=== PATIENT | female | born 1975 | race Two or more races ===

== ENCOUNTER 2017-05-18 23:23 | Emergency (ER) | payer BC, OTHER ==
[~2017-05-18] VITALS: Ht 162.6 cm; Wt 68.0 kg
[~2017-05-18 23:23] MED LIST: ALPRAZOLAM0.25 MG ORAL; AMITRIPTYLINE25 MG ORAL; ATIVAN1 MG ORAL; CARBAMAZEPINE200 MG ORAL; CEPHALEXIN500 MG ORAL; CIPROFLOXACIN250 MG PO; CIPROFLOXACIN500 M2 ORAL; FIORICET1 EA ORAL; GENTAMICIN SULF15 G2 TOPIC; IBUPROFEN600 MG ORAL; IBUPROFEN600 MG PO; IBUPROFEN800 MG ORAL; KEPPRA500 MG ORAL; NORCO 5-325 TA1 EACH ORAL; NORCO 5-325 TA1 EACH PO; PHENOBARBI20 MG/5 ML NG; PHENOBARBITAL30 MG ORAL; TEGRETOL200 MG PO; TOPIRAMATE100 MG ORAL
[2017-05-19 01:04] VITALS: BP 95/54
[2017-05-19 01:12] LABS: BASOPHILS % (AUTO) 0.7 % (0.0-2.0); EOSINOPHILS % (AUTO) 0.1 % (0.0-3.0); LYMPHOCYTES % (AUTO) 39.2 % (20.0-45.0); MEAN CORPUSCULAR HGB CONC 31.3 G/DL (32.0-36.0); MEAN CORPUSCULAR VOLUME 86 FL (80-99); MONOCYTES % (AUTO) 6.9 % (1.0-10.0); NEUTROPHILS % (AUTO) 53.1 % (45.0-75.0); PLATELET COUNT 225 K/UL (150-450); RED BLOOD COUNT 4.57 M/UL (4.20-5.40); RED CELL DISTRIBUTION WIDTH 14.2 % (11.6-14.8); WHITE BLOOD COUNT 7.6 K/UL (4.8-10.8)
[2017-05-19 01:43] LABS: ALANINE AMINOTRANSFERASE 12 U/L (3-33); ALBUMIN/GLOBULIN RATIO 1.2 (1.0-2.7); ANION GAP 14 (5-15); ASPARTATE AMINO TRANSFERASE 14 U/L (5-40); CARBON DIOXIDE 20 mEQ/L (20-30); CHLORIDE 107 mEQ/L (98-107); CREATININE 0.8 mg/dL (0.5-0.9); GLOMERULAR FILTRATION RATE > 60 mL/min (>60); HEMOLYSIS 3; LIPASE 31 U/L (< 60); POTASSIUM 3.1 mEQ/L (3.4-4.9); SODIUM 141 mEQ/L (135-145); TOTAL PROTEIN 7.7 g/dL (6.6-8.7)
[2017-05-19 01:46] LABS: TROPONIN I < 0.30 ng/mL (<=0.30)
[2017-05-19 01:51] VITALS: BP 93/56
[2017-05-19 02:15] VITALS: BP 88/70
[2017-05-19 03:19] VITALS: BP 93/65
[2017-05-19 03:30] VITALS: BP 113/82
--- NOTE | 2017-05-24 05:33 | Emergency Room Report ---
History of Present Illness General Chief Complaint: General Complaint Source: Patient Present Illness HPI Patient 41-year-old female who presented after increased generalized weakness. Patient prior history of seizure disorder. Patient had reportedly compliant with his medications. Patient stated that she had been feeling increasingly tired. Patient denied any fevers. She reported having a seizure several days ago. She had not been vomiting or having any stiff neck. She denied any pain at this time. Allergies: Coded Allergies: No Known Allergies (Verified , 12/30/08) Patient History Past Medical History: see triage record Last Menstrual Period: Last month Now: No Reviewed Nursing Documentation: PMH: Agreed, PSxH: Agreed Nursing Documentation-PMH Past Medical History: No History, Except For Hx Cardiac Problems: Yes Hx Cancer: No Hx Gastrointestinal Problems: No Hx Neurological Problems: Yes Hx Seizures: Yes Review of Systems All Other Systems: negative except mentioned in HPI Physical Exam Vital Signs Date Time Temp Pulse Resp B/P Pulse Ox O2 Delivery O2 Flow Rate FiO2 05/18/17 23:43 97.9 82 16 106/70 100 Room Air Sp02 EP Interpretation: reviewed, normal General Appearance: normal inspection, well appearing, no apparent distress, alert, GCS 15 Head: atraumatic ENT: normal ENT inspection, hearing grossly normal, normal voice Neck: normal inspection, full range of motion, supple, no bony tend Respiratory: normal inspection, lungs clear, normal breath sounds, no respiratory distress, no retraction, no wheezing Cardiovascular #1: regular rate, rhythm, no edema Gastrointestinal: normal inspection, normal bowel sounds, non tender, soft, no guarding, no hernia Genitourinary: no CVA tenderness Musculoskeletal: normal inspection, back normal, normal range of motion Neurologic: normal inspection, alert, oriented x3, responsive, rn urgent care III-XII nml as tested, speech normal Psychiatric: normal inspection, judgement/insight normal, mood/affect normal Skin: normal inspection, normal color, no rash Medical Decision Making Diagnostic Impression: Primary Impression: Arm contusion Additional Impression: Generalized weakness ER Course Patient presented for generalized weakness. Differential diagnosis included was not limited to anemia, medication overdose, urinary tract infection, electrolyte abnormality, hypothyroidism, myocardial infarction, myasthenia gravis, dehydration, among others. Because of complexity of patient's case laboratory testing and imaging studies were ordered. Laboratory studies are unremarkable. Patient was given IV fluids. She stated that she felt somewhat better.The patient is advised to follow up with primary care doctor in 1-2 days. Patient is advised to return if any worsening condition or if any changes in status that are concerning. Labs Test 05/19/17 00:42 White Blood Count 7.6 K/UL (4.8-10.8) Red Blood Count 4.57 M/UL (4.20-5.40) Hemoglobin 12.3 G/DL (12.0-16.0) Hematocrit 39.4 % (37.0-47.0) Mean Corpuscular Volume 86 FL (80-99) Mean Corpuscular Hemoglobin 27.0 PG (27.0-31.0) Mean Corpuscular Hemoglobin Concent 31.3 G/DL (32.0-36.0) Red Cell Distribution Width 14.2 % (11.6-14.8) Platelet Count 225 K/UL (150-450) Mean Platelet Volume 8.0 FL (6.5-10.1) Neutrophils (%) (Auto) 53.1 % (45.0-75.0) Lymphocytes (%) (Auto) 39.2 % (20.0-45.0) Monocytes (%) (Auto) 6.9 % (1.0-10.0) Eosinophils (%) (Auto) 0.1 % (0.0-3.0) Basophils (%) (Auto) 0.7 % (0.0-2.0) Sodium Level 141 mEQ/L (135-145) Potassium Level 3.1 mEQ/L (3.4-4.9) Chloride Level 107 mEQ/L (98-107) Carbon Dioxide Level 20 mEQ/L (20-30) Anion Gap 14 (5-15) Blood Urea Nitrogen 7 mg/dL (7-23) Creatinine 0.8 mg/dL (0.5-0.9) Estimat Glomerular Filtration Rate > 60 mL/min (>60) Glucose Level 97 mg/dL (74-106) Calcium Level 9.0 mg/dL (8.6-10.2) Total Bilirubin < 0.2 mg/dL (0.0-1.2) Aspartate Amino Transf (AST/SGOT) 14 U/L (5-40) Alanine Aminotransferase (ALT/SGPT) 12 U/L (3-33) Alkaline Phosphatase 145 U/L (35-104) Troponin I < 0.30 ng/mL (<=0.30) Pro-B-Type Natriuretic Peptide 119 pg/mL (0-125) Total Protein 7.7 g/dL (6.6-8.7) Albumin 4.3 g/dL (3.5-5.2) Globulin 3.4 g/dL Albumin/Globulin Ratio 1.2 (1.0-2.7) Lipase 31 U/L (< 60) Last Vital Signs Date Time Temp Pulse Resp B/P Pulse Ox O2 Delivery O2 Flow Rate FiO2 05/19/17 03:30 70 16 113/82 100 Room Air 05/18/17 23:43 97.9 Status: improved Disposition: HOME, SELF-CARE Condition: Stable Referrals: NON PHYSICIAN (PCP) Patient Instructions: Contusion, Seizure, Adult Mark Hewitt May 24, 2017 05:33
== END 2017-05-19 03:30 | disposition home or self-care (01) ==
LOC: EMR 23:59
DX: S40.029A Contusion of unspecified upper arm, initial encounter (principal); R53.1 Weakness; G40.909 Epilepsy, unspecified, not intractable, without status epilepticus; X58.XXXA Exposure to other specified factors, initial encounter; Y93.9 Activity, unspecified; Y92.9 Unspecified place or not applicable
CPT/HCPCS: 36415; 80053; 83690; 83880; 84484; 85025; 96374

== ENCOUNTER 2018-03-08 21:07 | Emergency (ER) | payer BC, OTHER ==
[~2018-03-08] VITALS: Ht 162.6 cm; Wt 77.1 kg
[2018-03-08] MEDS ORDERED: PSEUDOEPHEDRINE60 MG PO (22:20)
[2018-03-08] MEDS ORDERED: AZITHROMYCIN250 MG ORAL (22:20)
[2018-03-08] MEDS ORDERED: IBUPROFEN600 MG ORAL (22:20)
--- NOTE | 2018-03-08 22:20 | Emergency Room Report ---
History of Present Illness General Chief Complaint: Upper Respiratory Illness Source: Patient Present Illness HPI Is a 41-year-old female with a history of seizure. She presents with chief complaint of ear pain and sore throat for the last 2 weeks. Also with sinus problem. No nausea no vomiting. No cough or congestion. Denies any other complaint. Pain is 10 out of 10. Worse with swallowing. Allergies: Coded Allergies: No Known Allergies (Verified , 12/30/08) Patient History Past Medical History: see triage record, old chart reviewed, seizures Past Surgical History: other Pertinent Family History: none Social History: Denies: smoking Last Menstrual Period: February Now: No Immunizations: other Reviewed Nursing Documentation: PMH: Agreed; PSxH: Agreed Nursing Documentation-PMH Hx Cardiac Problems: Yes Hx Cancer: No Hx Gastrointestinal Problems: No Hx Neurological Problems: Yes Hx Seizures: Yes Review of Systems Constitutional: Reports: fever Eye: Denies: eye pain, blurred vision ENT: Reports: ear pain, nose congestion; Denies: throat swelling Respiratory: Denies: cough, shortness of breath Cardiovascular: Denies: chest pain, palpitations Gastrointestinal: Denies: abdominal pain, diarrhea, nausea, vomiting Musculoskeletal: Denies: back pain, joint pain Skin: Denies: rash Neurological: Denies: headache, numbness Endocrine: Denies: increased thirst, increased urine Hematologic/Lymphatic: Denies: easy bruising All Other Systems: negative except mentioned in HPI Physical Exam Vital Signs Date Time Temp Pulse Resp B/P (MAP) Pulse Ox O2 Delivery O2 Flow Rate FiO2 03/08/18 21:19 97.5 79 18 95/52 99 Room Air 97.5 vitals normal Sp02 EP Interpretation: reviewed, normal General Appearance: well appearing, no apparent distress, alert Head: normocephalic, atraumatic Eyes: bilateral eye PERRL, bilateral eye EOMI ENT: hearing grossly normal, pharyngeal erythema, other - bilateral TM with effusion Neck: full range of motion, supple, no meningismus Respiratory: chest non-tender, lungs clear, normal breath sounds Cardiovascular #1: regular rate, rhythm, no murmur Gastrointestinal: normal bowel sounds, non tender, no mass, no organomegaly, no bruit, non-distended Musculoskeletal: back normal, gait/station normal, normal range of motion Psychiatric: mood/affect normal Skin: warm/dry Medical Decision Making Diagnostic Impression: Primary Impression: Upper respiratory infection Qualified Codes: J06.9 - Acute upper respiratory infection, unspecified Additional Impressions: Acute otitis media with effusion of both ears Pharyngitis with viral syndrome ER Course Patient with a viral illness, located by otitis media. No evidence of any sepsis pneumonia or meningitis or other serious bacterial infection. We'll discharge home. Last Vital Signs Date Time Temp Pulse Resp B/P (MAP) Pulse Ox O2 Delivery O2 Flow Rate FiO2 03/08/18 21:27 79 18 Room Air 03/08/18 21:19 97.5 95/52 99 97.5 Status: unchanged Disposition: HOME, SELF-CARE Condition: Stable Scripts Pseudoephedrine Hcl* (SUDAFED*) 60 Mg Tablet 60 MG PO Q6H, #30 TAB Prov: LISA DONAHUE M.D. 03/08/18 Azithromycin* (ZITHROMAX*) 250 Mg Tablet 250 MG ORAL DAILY, #6 TAB 0 Refills Take two tablets by mouth today, then take one tablet by mouth daily for four days Prov: LISA DONAHUE M.D. 03/08/18 Ibuprofen* (MOTRIN*) 600 Mg Tablet 600 MG ORAL Q8H PRN for For Pain, #30 TAB 0 Refills Prov: LISA DONAHUE M.D. 03/08/18 Referrals: [facility],REFERRING (PCP) Additional Instructions: Follow-up with your doctor in 7 days. Increase fluids. Salt water gargle. Return if worse. LISA DONAHUE M.D. Mar 08, 2018 22:20
[2018-03-08 22:28] VITALS: BP 110/68
[2018-03-08 22:31] VITALS: BP 110/68
== END 2018-03-08 22:31 | disposition home or self-care (01) ==
LOC: EMR 21:40
DX: J06.9 Acute upper respiratory infection, unspecified (principal); H65.193 Other acute nonsuppurative otitis media, bilateral; J02.8 Acute pharyngitis due to other specified organisms; B97.89 Other viral agents as the cause of diseases classified elsewhere
CPT/HCPCS: 99284

== ENCOUNTER 2019-02-17 17:55 | Emergency (ER) | payer OTHER ==
[~2019-02-17] VITALS: Ht 160 cm; Wt 65.8 kg
[~2019-02-17 17:55] MED LIST changes: +AZITHROMYCIN250 MG ORAL; +PSEUDOEPHEDRINE60 MG PO
--- NOTE | 2019-02-17 18:37 | Emergency Room Report ---
History of Present Illness General Chief Complaint: Behavioral Complaint Source: EMS Present Illness HPI 43 YO Female presents to the ED c/o recent seizure. pt. states she takes Tegretol. she has 3/10 in severity pain in the right knee which she describes as an ache. pt. states under stress she experiences breakthrough seizures. Denies N/V, or midline neck or back pain. Declines medical work-up. is requesting SSI/Disability evaluation for sz hx. Allergies: Coded Allergies: No Known Allergies (Verified , 12/30/08) Patient History Past Medical History: see triage record, seizures Past Surgical History: none Pertinent Family History: none Now: No Reviewed Nursing Documentation: PMH: Agreed; PSxH: Agreed Nursing Documentation-PMH Past Medical History: No History, Except For Hx Cardiac Problems: Yes Hx Cancer: No Hx Gastrointestinal Problems: No History Of Psychiatric Problem: Yes Hx Neurological Problems: Yes Hx Seizures: Yes Review of Systems All Other Systems: negative except mentioned in HPI Physical Exam Vital Signs Date Time Temp Pulse Resp B/P (MAP) Pulse Ox O2 Delivery O2 Flow Rate FiO2 02/17/19 17:52 98.4 95 20 116/82 98 Room Air Sp02 EP Interpretation: reviewed, normal General Appearance: well appearing, no apparent distress, alert, GCS 15, non- toxic Head: normocephalic, atraumatic Eyes: bilateral eye normal inspection, bilateral eye PERRL, bilateral eye EOMI ENT: hearing grossly normal, normal voice, other - no oral lesions/ bleeding Neck: full range of motion, no bony tend Respiratory: chest non-tender, lungs clear, normal breath sounds, speaking full sentences Cardiovascular #1: regular rate, rhythm Musculoskeletal: back normal, gait/station normal, normal range of motion, tender - mild ttp to anterior right knee, able to bear weight/ ambulate, no swelling noted. Neurologic: alert, oriented x3, responsive, motor strength/tone normal, sensory intact, normal gait, speech normal, other - no nystagmus, not lethargic answers questions with normal response time, appropriate answers and sufficient detail. , grossly normal Psychiatric: judgement/insight normal Skin: normal color, no rash, warm/dry, well hydrated Medical Decision Making PA Attestation Dr. Wu is my supervising Physician whom patient management has been discussed with. Diagnostic Impression: Primary Impression: Seizure disorder Additional Impressions: Knee pain Qualified Codes: M25.561 - Pain in right knee Contusion of right knee Qualified Codes: S80.01XA - Contusion of right knee, initial encounter ER Course 43 YO Female presents to the ED c/o recent seizure. pt. states she takes Tegretol. she has 3/10 in severity pain in the right knee which she describes as an ache. pt. states under stress she experiences breakthrough seizures. Denies N/V, or midline neck or back pain. Declines medical work-up. is requesting SSI/Disability evaluation for sz hx. - Patient is diagnosed with epilepsy and takes Tegretol- bystander called 911 when pt. found disoriented on the ground at a bus stop. Ddx considered but are not limited to seizure, meningitis, infection, CVA/TIA, intracranial hemorrhage, intracranial process Vital signs: he is afebrile, vital signs are WNL H&PE are most consistent with status post seizure- alert, and not currently in post-ictal state. ORDERS: none- work up declined by pt. ED INTERVENTIONS: -Motrin PO -I do not identify an emergent condition at this time. With current presentation , pt. is stable for close outpatient follow up and conservative treatment. D/ w pt. to return promptly to ED with worsening or new symptoms.- Pt. verbalizes' understanding and agreement with proposed treatment plan.proposed treatment plan. DISCHARGE: At this time pt. is stable for d/c to home. Will provide printed patient care instructions, and any necessary prescriptions. Care plan and follow up instructions have been discussed with the patient prior to discharge. Last Vital Signs Date Time Temp Pulse Resp B/P (MAP) Pulse Ox O2 Delivery O2 Flow Rate FiO2 02/17/19 17:52 98.4 95 20 116/82 98 Room Air Disposition: HOME, SELF-CARE Condition: Stable Scripts Ibuprofen* (MOTRIN*) 600 Mg Tablet 600 MG ORAL THREE TIMES A DAY, #20 TAB 0 Refills Prov: Charissa Bazan 02/17/19 Patient Instructions: Seizure, Adult, [id number] Additional Instructions: Take medications as directed. Follow up with a Primary Care Provider within 3days, even if your symptoms have resolved. --Please review list of primary care clinics, if you do not already have a primary care provider Return sooner to ED if new symptoms occur, or current symptoms become worse. - Please note that this Emergency Department Report was dictated using [employer] clothes press operator technology software, occasionally this can lead to erroneous entry secondary to interpretation by the dictation equipment. Charissa Bazan Feb 17, 2019 18:37
[2019-02-17] MEDS ORDERED: IBUPROFEN600 MG ORAL (18:38)
[2019-02-17 18:46] VITALS: BP 116/82
--- NOTE | 2019-02-17 18:49 | NUR ---
ED Nurse Note:pt. was BIBA from the bus stop with c/o right knee and back pain ,no injury reported, seen by ER PA, pain meds given to pt
--- NOTE | 2019-02-17 19:29 | NUR ---
ED Nurse Note: Pt cleared by health care Provider for discharge. DC instructions/prescription was given and explained to pt and verbalized understanding of teachings. All medical deviecs such as ID band removed. Pt is AAO x4, ambulatory and left with all personal belongings.
[2019-02-17 19:30] VITALS: BP 116/82
== END 2019-02-17 19:30 | disposition home or self-care (01) ==
LOC: EDBD 17:55 → EMR 18:31
DX: G40.909 Epilepsy, unspecified, not intractable, without status epilepticus (principal); M25.561 Pain in right knee; S80.01XA Contusion of right knee, initial encounter; X58.XXXA Exposure to other specified factors, initial encounter; Y92.9 Unspecified place or not applicable
CPT/HCPCS: 99282